=== PATIENT | male | born 1970 | race Caucasian/White ===

== ENCOUNTER 2017-02-25 22:42 | Emergency (ER) | payer OTHER ==
[~2017-02-25] VITALS: Ht 188 cm; Wt 113.4 kg
[~2017-02-25 22:42] MED LIST: HYDROCODON-ACE1 EAC7 PO; IBUPROFEN 800800 M1 PO; NOHOMEMEDICATIONS; SENNA-S TABLET1 EACH PO
[2017-02-25 22:44] VITALS: BP 144/80
[2017-02-25] MEDS ORDERED: AUGMENTIN 875875 MG PO (22:54)
== END 2017-02-25 23:15 | disposition home or self-care (01) ==
LOC: ER 22:42
DX: H66.91 Otitis media, unspecified, right ear (principal); F10.99 Alcohol use, unspecified with unspecified alcohol-induced disorder

== ENCOUNTER 2019-04-24 18:38 | Inpatient (IN) | payer OTHER ==
[~2019-04-24] VITALS: Ht 188 cm; Wt 113.4 kg
[~2019-04-24 18:38] MED LIST changes: +AUGMENTIN 875875 MG PO
[2019-04-24 19:17] LABS: URINE BILIRUBIN NEGATIVE (Negative); URINE BLOOD NEGATIVE (Negative); URINE CLARITY CLEAR; URINE COLOR YELLOW; URINE GLUCOSE-RANDOM* NEGATIVE (Negative); URINE KETONES NEGATIVE (Negative); URINE LEUKOCYTES-REFLEX NEGATIVE (Negative); URINE NITRITE-REFLEX NEGATIVE (Negative); URINE PROTEIN (DIPSTICK) NEGATIVE (Negative); URINE SPECIFIC GRAVITY 1.015 (1.005-1.035)
[2019-04-24 19:49] VITALS: BP 134/95
[2019-04-24 20:45] LABS: ABSOLUTE NEUTROPHILS 8.3 thou/uL (1.4-8.2); BASOPHILS 0.7 % (0.0-2.0); EOSINOPHILS 1.9 % (0.0-3.0); HEMOGLOBIN 15.2 gm/dL (14.0-18.0); LYMPHOCYTES 17.4 % (24.0-44.0); MCH 29.9 pg (26.0-34.0); MCHC 33.7 g/dL (28.0-37.0); MCV 88.8 fL (80.0-100.0); MONOCYTES 5.7 % (1.0-8.0); PLATELET COUNT 212 thou/uL (150-400); POLYS 74.3 % (36.0-66.0); RBC 5.07 mil/uL (4.50-6.00); RDW 13.7 % (10.5-14.5); WBC 11.1 thou/uL (4.0-11.0)
[2019-04-24 22:09] LABS: ANION GAP 11 mmol/L (7-16); BUN 29 mg/dL (7-18); CALCIUM 9.1 mg/dL (8.5-10.1); CHLORIDE 106 mmol/L (98-107); CO2 23 mmol/L (21-32); GLUCOSE 100 mg/dL (74-106); LIPASE 67 U/L (73-393); POTASSIUM 4.7 mmol/L (3.5-5.1); SGOT 30 U/L (15-37); SGPT 30 U/L (30-65); SODIUM 140 mmol/L (136-145); TOTAL PROTEIN 7.5 g/dL (6.4-8.2); TROPONIN-I <0.06 ng/mL (<0.06)
--- NOTE | 2019-04-25 00:18 | NUR ---
CALLED UNIT TO GIVE REPORT. NURSE IN ANOTHER PT'S ROOM. RN WILL CALL BACK.
--- NOTE | 2019-04-25 00:35 | NUR ---
REPORT GIVEN TO RECEIVING RN ON THE FLOOR.
[2019-04-25 00:45] VITALS: BP 136/69
[2019-04-25 00:53] VITALS: BP 121/67
--- NOTE | 2019-04-25 03:18 | NUR ---
Pt arrived from ED via WC approx 0100. A/OX4,oriented to the unit and room and made comfortable. VSS. Pt is up ad jalyn,denies nausea on admission but c/o mid upper abd pain. Medicated per EMAR with relief reported. IVF infusing via right wrist without any problems. Pt is NPO and adhering to it. Admission paperwork signed by patient. Encouraged to call for help as needed. Call light placed within reach,will continue to monitor pt.
[2019-04-25 03:45] VITALS: BP 113/55
[2019-04-25 05:41] LABS: HEMATOCRIT 41.4 % (42.0-52.0); HEMOGLOBIN 13.8 gm/dL (14.0-18.0); MCH 29.8 pg (26.0-34.0); MCHC 33.3 g/dL (28.0-37.0); MCV 89.5 fL (80.0-100.0); RBC 4.62 mil/uL (4.50-6.00); RDW 13.3 % (10.5-14.5); WBC 8.5 thou/uL (4.0-11.0)
[2019-04-25 05:52] LABS: PROTIME 10.3 Seconds (9.3-11.4)
[2019-04-25 05:55] LABS: CALCIUM 8.4 mg/dL (8.5-10.1)
[2019-04-25 07:41] VITALS: BP 113/70
--- NOTE | 2019-04-25 08:19 | EKG ---
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: romy : 1970 Requested By: Karl Gates Order Number: [id number] MD: Manish Sun Measurements Intervals [place] Rate: 56 P: 49 SD: 173 QRS: 38 QRSD: 97 T: 46 QT: 429 QTc: 415 Interpretive Statements Sinus bradycardia Poor R wave progression No previous ECG available for comparison Electronically Signed On 04-25-2019 8:19:43 CDT by Manish Sun [email or web address] ��������������������������������������������� <ELECTRONICALLY SIGNED> ���������������������������������������� By: Manish Sun MD, [facility] ��������������������������������������������� 04/25/19818 [id number] Manish Sun MD, FACC /EPI
--- NOTE | 2019-04-25 10:22 | NUR ---
Assess due to RD consult received. Admit with SBO. Has hx TBI, trach/PEG(reversed), pancreatitis. Diet is clear liquids. Surgery pending evaluation. No wt loss indicated. Await for timely diet advance with tolerance. Low nutrition risk
--- NOTE | 2019-04-25 13:55 | NUR ---
ASSUMED PT CARE REPORT RECEIVED FROM NURSE. PT IS AOX4, ON RA. PT IS UP AD PREETI. NO COMPLAINT. IV FLUID INFUSING AT 125 PER HOUR. WILL CONTINUE TO MONITOR PT. CALL LIGHT AT REACH
--- NOTE | 2019-04-25 13:59 | NUR ---
CLEAR LIQUID DIET STARTED
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
[2019-04-25 16:06] VITALS: BP 122/74
[2019-04-25 19:08] VITALS: BP 109/62
--- NOTE | 2019-04-26 03:12 | NUR ---
Assumed pt care at 1900. A/OX4,VSS. Denies pain on assessment,stating that he feels his best. called for updates;ordered to advance diet to regular and may d/c if tolorates,pt updated. Up ad jalyn, IVF infusing without problems.
[2019-04-26 03:56] VITALS: BP 115/66
[2019-04-26 07:05] VITALS: BP 103/64
[2019-04-26 13:31] VITALS: BP 103/64
[2019-04-26 13:34] VITALS: BP 103/64
[2019-04-26 13:45] VITALS: BP 103/64
[2019-04-26 14:19] VITALS: BP 103/64
--- NOTE | 2019-04-26 14:21 | NUR ---
PT DISCHARGED IV ACSESS DCD. ALL BELONGINGS PACKED AND SENT WITH PATIENT. DISCHARGE PAPERS GONE OVER SIGNED AND COPY IN CHART.
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
== END 2019-04-26 14:07 | disposition home or self-care (01) | DRG 390 ==
LOC: ER 18:38 → EROBS 23:49 → 4E 23:49 → ENTRNSPT 04-26 13:59 → EDTRNSPTSTS 04-26 14:02 → 4E 04-26 14:07
PROVIDERS: Emergency Medicine; Nurse Practitioner Family; ADMIT Hospitalist
DX: K56.609 Unspecified intestinal obstruction, unspecified as to partial versus complete obstruction (principal); F32.9 Major depressive disorder, single episode, unspecified; Z93.0 Tracheostomy status; Z93.1 Gastrostomy status; Z79.899 Other long term (current) drug therapy; Z87.820 Personal history of traumatic brain injury
CPT/HCPCS: 10084